=== PATIENT | female | born 2005 | race Caucasian/White ===

== ENCOUNTER 2023-03-11 18:03 | Inpatient (IN) ==
[2023-03-11] MEDS ORDERED: Promethazine INJ(RESTRICTED) 25 MG/ML 1 ml VIAL IV PRN (20:13)
[2023-03-11] MEDS ORDERED: Lactated Ringers 1000 ml BAG 1,000 ML IV ONE (20:13)
[2023-03-11] MEDS ORDERED: Dinoprostone 10 MG VAG.SUPP VAGINAL ONE (20:13)
[2023-03-11] MEDS ORDERED: Buffered Lidocaine 1% SYRIN 1 ml INTRADERM ONE (20:13)
[2023-03-11] MEDS ORDERED: Lactated Ringers 1000 ml BAG 1,000 ML IV SCH (21:00)
[2023-03-11 23:01] LABS: Urine Benzodiazepine Screen None Detected (None Detect); Urine Cannabinoids Screen None Detected (None Detect); Urine Opiates Screen None Detected (None Detect)
[2023-03-12] MEDS ORDERED: Morphine 10 MG/ML VIAL (1 ml) IV ONE (02:30)
[2023-03-12 04:03] LABS: ABS Lymphocytes 2.1 10^3/uL (1.0-4.8); ABS Monocytes 1.2 10^3/uL (0.0-0.9); ABS Neutrophils 9.5 10^3/uL (1.5-7.6); ABS Nucleated RBC 0.01 10^3/ul; Eosinophil % 0.2 %; Hematocrit 30.1 % (35-45); Hemoglobin 10.3 g/dL (11.5-14.3); Lymphocyte % 16.3 %; Mean Corpuscular Hemoglobin 27.4 pg (27-33); Mean Corpuscular Volume 80.5 fL (80-97); Mean Platelet Volume 9.6 fL (7.5-11.2); Platelet Count 202 10^3/uL (150-450); Red Blood Count 3.74 10^6/uL (3.63-4.92); White Blood Count 12.8 10^3/uL (3.8-11.8)
[2023-03-12 04:27] LABS: Albumin 3.3 g/dL (3.2-5.2); Potassium 4.1 mmol/L (3.5-5.0); Total Bilirubin 0.3 mg/dL (0.2-1.0)
[2023-03-12 04:33] LABS: Albumin/Globulin Ratio 1.4 (1-3); Creatinine, Serum 0.52 mg/dL (0.51-0.95); Globulin 2.4 g/dL (2-4); Total Protein 5.7 g/dL (6.4-8.9); eGFR CKD-EPI 137.2 (>60)
[2023-03-12] MEDS ORDERED: Lidocaine 1% w EPI 1:200,000 SDV 30 ML VIAL ONE (09:13)
[2023-03-12] MEDS ORDERED: Oxytocin in LR 20,000 MILLI.UNIT/1,000 ML BAG IV SCH ×2 (10:00→21:45)
[2023-03-12] MEDS ORDERED: Lidocaine 2% w/ EPI 1:200,000 MPF 20 ML SDV VIAL ONE (12:05)
[2023-03-12] MEDS ORDERED: OBEPIDURAL (200 ML) 200 ML EPIDURAL ONE (12:05)
[2023-03-12] MEDS ORDERED: Phenylephrine 40 mcg/mL 10mL (400mcg) SYRINGE IV PUSH PRN ×2 (13:09)
[2023-03-12] MEDS ORDERED: Sodium Citrate/Citric Acid LIQ 15 ML UDC PO PRN (13:09)
[2023-03-12] MEDS ORDERED: Lactated Ringers 1000 ml BAG 1,000 ML IV ONE (13:09)
[2023-03-12 13:42] LABS: Urine Appearance Clear; Urine Bilirubin Negative (Negative); Urine Blood Negative (Negative); Urine Color Yellow; Urine Glucose Negative (Negative); Urine Ketones Negative (Negative); Urine Nitrite Negative (Negative); Urine Protein Negative (Negative); Urine Specific Gravity 1.013 (1.002-1.030); Urine Urobilinogen Negative (Negative)
[2023-03-12] MEDS ORDERED: OBEPIDURAL (200 ML) 200 ML EPIDURAL SCH (14:00)
[2023-03-12] MEDS ORDERED: Lactated Ringers 1000 ml BAG 1,000 ML IV SCH ×2 (14:00→22:00)
[2023-03-12] MEDS ORDERED: Lidocaine 2% PF 10 ML AMP (OR) ONE (19:45)
[2023-03-12] MEDS ORDERED: ceFOXitin 2 GM IVPREMIX 2 GM/50 ML BAG IVPB ONE (20:02)
[2023-03-12] MEDS ORDERED: Morphine PF AMP (0.5MG/ML) 5 MG/10 ML AMP ONE (20:12)
[2023-03-12] MEDS ORDERED: fentaNYL 100 mcg/2 ml 50 MCG/ML VIAL ONE ×2 (20:15→21:17)
[2023-03-12] MEDS ORDERED: Oxytocin 10 UNITS/ML 1 ML VIAL ONE (20:29)
[2023-03-12] MEDS ORDERED: Ondansetron 4 mg VIAL 2 MG/ML 2 ml VIAL ONE (20:29)
[2023-03-12] MEDS ORDERED: Dexamethasone IV 4 MG/ML VIAL 1 ml VIAL ONE (20:29)
[2023-03-12] MEDS ORDERED: Ketamine HCL 50 mg/ml 10 ml VIAL (500 MG) ONE (20:33)
[2023-03-12] MEDS ORDERED: Midazolam 2 mg/2 ml VIAL 1 mg/ml 2 ml VIAL (2 mg) ONE (20:38)
[2023-03-12] MEDS ORDERED: Acetaminophen IV 1 GM/100ML 1,000 MG/100 ML BAG IV PRN (21:07)
[2023-03-12] MEDS ORDERED: Naloxone 0.4 mg VIAL 0.4 mg/ml 1 ml VIAL IV PUSH PRN (21:07)
[2023-03-12] MEDS ORDERED: Ondansetron 4 mg VIAL 2 MG/ML 2 ml VIAL IV PRN (21:07)
[2023-03-12] MEDS ORDERED: Metoclopramide 5 MG/ML VIAL (10 mg) IV PRN (21:07)
[2023-03-12] MEDS ORDERED: Glycerin ADULT 2.4 gm SUPP PR PRN (21:41)
[2023-03-12] MEDS: Witch Hazel PAD JAR TOPICAL PRN (23:07)
[2023-03-12] MEDS: Dibucaine 1% OINT 28.35 GM TUBE PR PRN (23:07)
[2023-03-13] MEDS: Witch Hazel PAD JAR TOPICAL PRN (05:58)
[2023-03-13] MEDS: Dibucaine 1% OINT 28.35 GM TUBE PR PRN (05:58)
[2023-03-13 07:30] LABS: Hematocrit 22.6 % (35-45); Hemoglobin 7.5 g/dL (11.5-14.3); Mean Corpuscular Hemoglobin 27.4 pg (27-33); Mean Corpuscular Hgb Conc 33.2 g/dL (31-36); Mean Corpuscular Volume 82.6 fL (80-97); Mean Platelet Volume 9.5 fL (7.5-11.2); Platelet Count 174 10^3/uL (150-450); Red Blood Count 2.73 10^6/uL (3.63-4.92); Red Cell Distribution Width 14.5 % (12-17); White Blood Count 21.6 10^3/uL (3.8-11.8)
[2023-03-13 07:47] LABS: ABS Lymphocytes 1.3 10^3/uL (1.0-4.8); ABS Monocytes 1.6 10^3/uL (0.0-0.9); ABS Neutrophils 18.7 10^3/uL (1.5-7.6)
[2023-03-13] MEDS ORDERED: Iron Sucrose 200 MG in NS 0.9% 100 ml BAG 100 ML IVPB ONE (17:31)
[2023-03-14] MEDS ORDERED: Measles, Mumps,Rubella VACC 0.5 ML/VIAL SUBCUT ONE (11:20)
[2023-03-14 11:37] LABS: Hematocrit 20.8 % (35-45); Hemoglobin 7.1 g/dL (11.5-14.3); Mean Corpuscular Hemoglobin 28.1 pg (27-33); Mean Corpuscular Hgb Conc 34.1 g/dL (31-36); Mean Corpuscular Volume 82.3 fL (80-97); Mean Platelet Volume 9.1 fL (7.5-11.2); Platelet Count 180 10^3/uL (150-450); Red Blood Count 2.52 10^6/uL (3.63-4.92)
[2023-03-15 08:00] VITALS: BP 121/62
== END 2023-03-15 14:10 | disposition home or self-care (01) | DRG 540 ==
LOC: MCHOBOUT 18:03 → MCHOB 19:23
PROVIDERS: ADMIT Registered Nurse; ATTEND Registered Nurse